=== PATIENT | female | born 1990 | race Caucasian/White ===

== ENCOUNTER 2021-03-08 12:15 | Outpatient (REF) | payer MEDICAID, SELFPAY | END 2021-03-08 12:16 | disposition home or self-care (01) | LOC: HO.LAB 12:15 | PROVIDERS: Visit Provider Internal Medicine | DX: Z20.822 Contact with and (suspected) exposure to COVID-19 (principal) | CPT/HCPCS: C9803; U0003; U0005 ==

== ENCOUNTER 2025-03-28 08:05 | Emergency (ER) | payer SELFPAY ==
--- NOTE | 2025-03-28 08:16 | ED_ITS ---
HPI - Allergic Reaction General Chief complaint: Allergic Reaction Stated complaint: Hives, difficulty swallowing Time Seen by Provider: 03/28/25 08:15 Source: patient and old records reviewed Mode of arrival: ambulatory Limitations: no limitations History of Present Illness ED Provider: YVETTE JON narrative: 34 yo female with no sig PMH here with c/o feeling lip swelling, diffuse hives, swollen eyes and some diff swallowing since a viral illness started Thursday. She has tried benadryl without relief. The only other new change is perfume. She has never had an allergy before. She notes that it did start after taking nyquil thursday night. She also became worse yesterday after taking dayquil. She has no hx of allergies with this in the past. She last took benadry last night. She denies swelling in throat today. MD complaint: allergic reaction Onset (ago): day(s) (3) Exposure: unknown Symptoms: rash, itching, facial swelling, lip swelling and difficulty swallowing Severity: moderate Treatment prior to arrival: benadryl Previous Allergic Reaction History: none Related Data Previous Rx's ?Medication ?Instructions ?Recorded loratadine 10 mg tablet 10 mg PO DAILY #10 tabs 03/07 09/27 (Allerclear) prednisone 20 mg tablet 40 mg (2 x 20 mg) PO DAILY 5 days 03/28/25 #10 tabs Allergies Allergy/AdvReac Type Severity Reaction Status Date / Time No Known Allergies Allergy Verified 03/28/25 08:25 Review of Systems Review of Systems: Constitutional : No Fever, No Chills ENT/Mouth : no oral swelling, No Hoarseness,pos Swallowing Difficulty Eyes: No Eye Pain, No Swelling, No Redness Cardiovascular : No Chest Pain, No SOB Respiratory : pos Cough, No Sputum, No Wheezing, No Smoke Exposure, No Dyspnea Gastrointestinal : No Nausea, No Vomiting, No Diarrhea, No abdominal Pain Genitourinary : No Dysuria, No Urinary Frequency, No Hematuria Musculoskeletal : No joint pain, No Myalgias, No Joint Swelling Skin : No Skin Lesions, positive rash All other systems reviewed and are negative [facility] Past Medical History Attestation statement: The following information was validated with the patient. Source: old records reviewed Medical History No pertinent past medical history Social History Social History (Updated 03/28/25 @ 08:30 by Gina Aguilar DO) Household Members: Family Patient Tobacco Use Status: Never used Tobacco Advance Directives: No Advance Directives Information Provided: No Physical Exam ED Vital Signs: Vital Signs - 24 hr 03/28/25 08:22 Temperature 98.5 F Pulse Rate 101 H Respiratory Rate 18 Blood Pressure 120/79 Pulse Oximetry 97 Oxygen Delivery Method Room Air BMI result Body Mass Index 32.8 Appearance: Alert. Oriented X3. No acute distress. Eyes: Pupils equal, round and reactive to light. ENT: Pharynx normal. no lip swelling, no angioedema, both eyes appear slightly puffy Neck: Normal inspection. Neck supple. CVS: Normal heart rate and rhythm. Pulses normal. Respiratory: No respiratory distress. Breath sounds normal. no stridor Abdomen: Soft and nontender. Skin: Skin warm and dry. Normal skin color. diffuse patchy hives on arms/legs/trunk Extremities: No lower extremity edema. Neuro: Oriented X 3. No motor deficit. No sensory deficit. Medications Administered Discontinued Medications Generic Name Dose Route Start Last Admin Trade Name Joaquin PRN Reason Stop Dose Admin Diphenhydramine HCl 25 mg 03/28/25 08:20 03/28/25 09:02 Diphenhydramine Hcl 50 Mg/Ml Vial IVPUSH 03/28/25 08:21 25 mg ONCE ONE Administration Famotidine 20 mg 03/28/25 08:20 03/28/25 08:59 Famotidine/Pf 20 Mg/2 Ml Vial IVPUSH 03/28/25 08:21 20 mg ONCE ONE Administration Methylprednisolone Sodium Succinate 60 mg 03/28/25 08:20 03/28/25 09:02 Methylprednisolone Sod Succ 125 Mg/2 Ml Vial IVPUSH 03/28/25 08:21 60 mg ONCE ONE Administration Medical Decision Making Medical Decision Making MDM Narrative: 34 yo female here with c/o hives, intermittent facial swelling after viral syn drome but also started after nyquil and worsened with dayquil at this time will need viral panel, strep, RPR. I am going to start on steroids, pepcid, benadryl. No angioedema or abnormal breath sounds does not need epi at this time Differential Diagnosis Differential Diagnoses: The differential diagnosis associated with the presentation includes allergy, viral syndrome, low susp syphillis Admission/Observation Consideration of admission/observation: Escalation of care including admission/observation considered responding well to therapy stable for DC with PO medications Lab Data Labs: Lab Results 03/28/25 Range/Units 08:49 COVID-19 (EULALIO) Negative (Negative) COVID-19 Clin Com See Note Influenza Type A (REGI) Negative (Negative) Influenza Type B (REGI) Negative (Negative) Influenza A & B Note See Note S. pyogenes GrpA REGI Negative (Negative) External Record Review External record reviewed: Outpatient record Prescription Management I considered prescription management with: Other Discharge Plan Discharge Clinical Impression: Allergic reaction Qualifiers: Encounter type: initial encounter Qualified Code(s): T78.40XA - Allergy, unspecified, initial encounter Patient Disposition: Home, Self-Care Instructions: General Allergic Reaction (ED) Additional Instructions: okay to take benadryl but only if very itchy I do not want to mix too much claritin and benadryl AVOID YOUR PERFUME AND NO MORE NYQUIL OR DAYQUIL - THERE ARE MULTIPLE DIFFERENT MEDICATIONS IN THEM AND DYE return for worsening swelling, oral swelling, diff breathing or any other concerns. Prescriptions: New prednisone 20 mg tablet 40 mg PO DAILY 5 Days Qty: 10 0RF loratadine [Allerclear] 10 mg tablet 10 mg PO DAILY Qty: 10 0RF Print Language: Czech
[2025-03-28 08:22] VITALS: BP 120/79; PULSE 101; RESP 18; TEMP 36.9; O2SAT 97; BMI 32.8
[2025-03-28 09:25] VITALS: BP 112/81; PULSE 89; RESP 16; TEMP 36.3; O2SAT 98
[2025-03-28 09:30] VITALS: BP 112/81; PULSE 89; RESP 16; TEMP 36.3; O2SAT 98
--- OUTSIDE RECORDS SUMMARY | 2025-03-28 09:31 | XMS_ITS ---
Author Name [facility] Organization Unknown Care Team Organization Name Specialty Phone Email Start Date End Da te [facility] 05/13/20222023
--- OUTSIDE RECORDS SUMMARY | 2025-03-28 09:31 | XMS_ITS | Clinical Summary ---
Author Organization [facility] [employer] [facility] Address [address] [place] [address] Care Team Providers Care Senior Integration Developer Name Role Phone No, Pcp [facility] SPECIALIST Primary Care Provider Unavailabl e Social History Tobacco Use Types Packs/Day Years Used Date Smoking Tobacco: Never Assessed Comments Unknown Sex and Gender Information Value Date Recorded Sex Assigned at Not on file Legal Sex Female 11:55 AM EDT Gender Identity Not on file Sexual Orientation Not on file Plan of Treatment Health Maintenance Due Date Last Done Comments Depression: Screening Annual ly using PHQ-2/9 in Adults 18 yrs or above (or HM Modifier)([facility]) 2006 Hepatitis C Virus Infection in Adolescents and Adults: Screening (or Modifier) ([facility]) 2006 SDNE Screening Reminder: [place]un ually for all adults ([facility]) 2006 Tobacco Smoking Cessation: i n Adults excluding Women: Behavioral and Pharmacotherapy Interventions ([facility]) 2006 DTaP/Tdap/Td Vaccines ([facility]) (1 - Tdap) 11/20/2007 Cervical Cancer Screenin 1-65 yrs of age (or Modifier) 2009 Cervical Cancer Screening: P ap every 3 yrs pts age 21-65 2009 Cervical Cancer: Pap Screeni ng with Modifier timing ([facility]) 2009 Cervical Cancer: hrHPV alone or with cotesting Pap for Pts 30-65yrs screening every 5yrs ([facility]) 2009 Flu Vaccination: Yearly for ages 18mos through 64 years (or Modifier)([facility]) 02/03/2025 COVID-19 Vaccine Screening: Initial Series and Booster Status ([facility]) (2023- season) 2025 Zoster/Shingles Vaccine Seri es Screening: Adults aged 18+ yrs (or HM Modifiers)([facility]) (1 of 2) 2038 Pneumococcal Vaccination Scr eening: Pts 0-19 & 19-49 yrs of age ([facility]) Aged Out No longer eligible based on patient's age to complete this topic Medical Devices Not on file Care Teams Senior Integration Developer Relationship Specialty Start Date End Date No, Pcp, REC[facility] C[facility] SPECIALIST N/A Do not use PCP - General Family Medicine 02/02/20
[2025-03-28 14:17] LABS: Syphilis Screen Nonreactive (Nonreactive)
== END 2025-03-28 09:34 | disposition home or self-care (01) ==
PROVIDERS: Emergency Provider Emergency Medicine
DX: L50.0 Allergic urticaria (principal); R13.10 Dysphagia, unspecified; R22.9 Localized swelling, mass and lump, unspecified; L29.9 Pruritus, unspecified; Z11.52 Encounter for screening for COVID-19
CPT/HCPCS: 86780; 87502; 87635; 87651; 96374; 96375; 99283; 99284; J1200; J1308; J2919